=== PATIENT | female | born 2000 | race Two or more races ===

== ENCOUNTER 2022-07-22 13:42 | Emergency (ER) | payer OTHER ==
[~2022-07-22] VITALS: Ht 165.1 cm; Wt 87.0 kg
[2022-07-22 14:32] VITALS: BP 124/84
[2022-07-22] MEDS ORDERED: KETOROLAC TROMETH 60MG/2ML VIAL IM ONE (14:45)
[2022-07-22] MEDS ORDERED: METH750T22 PO (15:36)
[2022-07-22] MEDS ORDERED: IBUP800T27 PO (15:36)
== END 2022-07-22 15:42 | disposition home or self-care (01) ==
LOC: ER 13:42
DX: S29.012A Strain of muscle and tendon of back wall of thorax, initial encounter (principal); M62.830 Muscle spasm of back; X50.0XXA Overexertion from strenuous movement or load, initial encounter; Y93.89 Activity, other specified; Y92.89 Other specified places as the place of occurrence of the external cause; Y99.8 Other external cause status
CPT/HCPCS: 71046; 96372; 99283; J1885